=== PATIENT | male | born 1945 | race Caucasian/White ===

== ENCOUNTER 2018-09-29 08:10 | Day surgery (SDC) | payer OTHER ==
[~2018-09-29] VITALS: Ht 177.8 cm; Wt 98.4 kg
[~2018-09-29 08:10] MED LIST: ADULT ASPIRIN R81 MG PO; ALTACE5 MG PO; FLUOXETINE HCL20 M1 PO; LEVOTHYROXINE75 MCG PO; LIPITOR40 MG PO; NAPROSYN500 MG PO; NEXIUM40 MG PO; NITROSTAT0.4 MG SL; NORVASC5 MG PO; PREPARATION H O28 GM PR
--- NOTE | 2018-09-29 10:52 | NUR ---
09/29/18 1052 Cristina Martinez 1031 PT ARRIVED IN PACU SLEEPY. ABD SOFT. 1045 PT SITTING UP IN BED. NO C/O'S. DECLINED WATER/JUICE WHEN OFFERED. 1050 OXYGEN REMOVED. SATS 92-95% ON RA.
--- NOTE | 2018-09-30 09:58 | OR ---
[facility] [address] [place], [place] [address] Signed DATE OF OPERATION: 09/29/2018 SURGEON: Kae Caruso MD PREOPERATIVE DIAGNOSES: 1. Mild proximal esophageal dysphagia. 2. Hiatal hernia. 3. Gastroesophageal reflux disease. 4. History of esophagitis. 5. Personal history of colonic polyps in 2008, 2013, and 2015. 6. Internal and external hemorrhoids. 7. Diverticulosis. POSTOPERATIVE DIAGNOSES: 1. Moderate sized hiatal hernia (44-40 cm). 2. Mild diffuse gastritis. 3. Moderate sigmoid diverticulosis. 4. Minimal internal and external hemorrhoids. PROCEDURES: 1. EGD with CLOtest and biopsies of the bulb, antrum and GE junction. 2. Colonoscopy without biopsy. ESTIMATED BLOOD LOSS: None. INDICATIONS: Terrell is a 73-year-old gentleman, who was asked to see me for upper and lower endoscopy. He has a long list of issues as we have described above. He seems to have some sort of dryness in his posterior oropharynx and/or proximal esophagus contributing to some level of dysphagia. I had given him pamphlets on both upper and lower endoscopy while in the office. He understands the nature of the 2 tests along with the risks including, but not limited to gas, bloating, crampy abdominal pain, bleeding, perforation, requiring surgery, and missed diagnosis. He is also aware of the need for IV conscious sedation. He had expressed understanding and wished to proceed. PROCEDURE NOTE: Terrell was taken into our endoscopy suite and placed in the supine semi-recumbent position. He was given a total of 8 mg of Versed and 200 mcg of fentanyl to cover both cases. The posterior oropharynx was anesthetized with Hurricaine spray. A bite block was Electronically Signed By: KAE CARUSO MD 09/30/18 0958 PATIENT NAME: TERRELL CERVANTES JR OPERATIVE REPORT DATE OF : 49 REPORT #: [id number] PHYSICIAN: KAE CARUSO MD PCP: HUYEN KIRBY REPORT IS CONFIDENTIAL AND NOT TO BE RELEASED WITHOUT AUTHORIZATION [facility] [address] [place], [place] [address] Signed utilized for the upper endoscopy. The adult gastroscope was introduced and advanced under direct visualization out into the third portion of the duodenum without difficulty. The duodenum was unremarkable. He had just a little bit of irritation in the pyloric bulb, so we went and took a biopsy from there. There were no ulcerations in the bulb nor the stomach. Back in the stomach, he had very minimal erythema, which is quite common. We went ahead and took a biopsy of the antrum for CLOtest as well as pathologic review. Upon retroflexion of scope, we could easily see his moderate-sized hiatal hernia with the stomach being drawn up through the area of the crura. There were no gastric or esophageal varices. The scope was withdrawn up through the area of the GE junction, which was compliant without stricture. He has minimal disruption to the Z-line. We went ahead and took a biopsy at the GE junction for pathologic review. We saw no Boggs's mucosa, no distal esophagitis. The middle and upper esophagus were unremarkable. After this, the gas suctioned out and the gastroscope removed. Terrell tolerated the procedure quite well. Terrell was then rotated into the left lateral decubitus position. He was maintained on IV sedation with Versed and fentanyl. A digital rectal exam was performed. He has very minimal external hemorrhoids. He has good sphincter tone. He has been to a radical prostatectomy. He had some scar tissue in the prostate fossa. However, no obvious nodularity. After this, the adult colonoscope was introduced and advanced all around into the cecum under direct visualization of the camera. We did use some extra sedation as well as some abdominal compression in order to get the scope to advance. His prep was quite good. The scope was then slowly withdrawn. We could easily see the appendiceal orifice as well as the ileocecal valve. We took pictures throughout for photodocumentation. We could see that he has diverticula in the sigmoid colon. They were moderate in size, few to moderate in number, and scattered about. The rectum itself appeared visually unremarkable. Upon retroflexion of scope, he does have some very minimal internal hemorrhoid tissue. After this, the gas was suctioned out and the colonoscope removed. Terrell tolerated the procedure quite well. RECOMMENDATIONS: Terrell will follow up in my office in 7 to 14 days to review his results. He told me he has some interest in surgical repair of his hiatal hernia. Also, he is having some trouble with evacuating the rectum and he may need some additional testing. Kae Caruso MD ALB/MODL Electronically Signed By: KAE CARUSO MD 09/30/18 0958 PATIENT NAME: TERRELL CERVANTES JR OPERATIVE REPORT DATE OF : 49 REPORT #: [id number] PHYSICIAN: KAE CARUSO MD PCP: HUYEN KIRBY REPORT IS CONFIDENTIAL AND NOT TO BE RELEASED WITHOUT AUTHORIZATION [facility] [address] [place], [place] [address] Signed /[id number] cc: MD Rachel Arellano NP Copies: KAE CARUSO MD, IRENE B NP ~ Electronically Signed By: KAE CARUSO MD 09/30/18 0958 PATIENT NAME: HELEN TERRELL GUILLE OPERATIVE REPORT DATE OF : 49 REPORT #: [id number] PHYSICIAN: KAE CARUSO MD PCP: HUYEN KIRBY REPORT IS CONFIDENTIAL AND NOT TO BE RELEASED WITHOUT AUTHORIZATION
== END 2018-09-29 11:06 | disposition home or self-care (01) ==
LOC: DS 08:10 → OPS 08:10 → DS 09:45 → OPS 11:06
PROVIDERS: Colon & Rectal Surgery
PROC: 0DJD8ZZ Inspection of Lower Intestinal Tract, Via Natural or Artificial Opening Endoscopic (ICD-10-PCS; 2018-09-29)
PROC: 0DB48ZX Excision of Esophagogastric Junction, Via Natural or Artificial Opening Endoscopic, Diagnostic (ICD-10-PCS; principal; 2018-09-29 09:45)
PROC: 0DB78ZX Excision of Stomach, Pylorus, Via Natural or Artificial Opening Endoscopic, Diagnostic (ICD-10-PCS; 2018-09-29 09:45)
DX: K64.8 Other hemorrhoids (principal); K29.50 Unspecified chronic gastritis without bleeding; K21.0 Gastro-esophageal reflux disease with esophagitis; K44.9 Diaphragmatic hernia without obstruction or gangrene; K57.30 Diverticulosis of large intestine without perforation or abscess without bleeding; K64.4 Residual hemorrhoidal skin tags; I25.2 Old myocardial infarction; Z90.79 Acquired absence of other genital organ(s); Z88.8 Allergy status to other drugs, medicaments and biological substances; Z86.010 Personal history of colon polyps; Z79.899 Other long term (current) drug therapy; Z79.82 Long term (current) use of aspirin; Z90.49 Acquired absence of other specified parts of digestive tract
CPT/HCPCS: 86677; 88305; 99153; G0500; J2250; J3010